=== PATIENT | female | born 1990 | race African-American/Black ===

== ENCOUNTER 2018-08-01 09:02 | Emergency (ER) | payer OTHER ==
[2018-08-01 09:06] VITALS: BP 135/81; PULSE 99; BMI 21.1
[2018-08-01] MEDS ORDERED: FLUORESCEIN NA 1 EA STRIP OD ONE (09:35)
[2018-08-01] MEDS ORDERED: FLUORESCEIN NA 1 EA STRIP ONE (09:37)
--- NOTE | 2018-08-01 09:48 | PDOC ---
History of Present Illness - General Chief Complaint: Injury Stated Complaint: INJURY Time Seen by Provider: 08/01/18 09:31 History Source: Patient Exam Limitations: Clinical Condition - History of Present Illness Initial Comments: 08/01/18 09:42 Patient with no significant past medical history presented for evaluation status post accidentally hitting her face to the corner of the right eye to a cabinet door 30 minutes ago. Patient denies change in vision, blurry vision. Patient denied contact or corrective lens use. Patient reported mild pain to right zygoma bone otherwise has no other symptoms Timing/Duration: 1-3 hours Past History - Past Medical History Allergies/Adverse Reactions: Allergies Allergy/AdvReac Type Severity Reaction Status Date / Time No Known Allergies Allergy Verified 08/01/18 09:19 Home Medications: Ambulatory Orders NK [No Known Home Medication] 08/01/18 COPD: No - Immunization History Immunization Up to Date: Yes - Suicide/Smoking/Psychosocial Hx Smoking History: Never smoked Hx Alcohol Use: No Drug/Substance Use Hx: No Review of Systems - Review of Systems Able to Perform ROS?: Yes Is the patient limited Hungarian proficient: No Constitutional: No: Chills, Fever, Malaise HEENTM: Yes: Symptoms Reported, See HPI, Eye Pain (right). No: Blurred Vision, Tearing, Recent change in vision, Double Vision, Cataracts, Ear Pain, Ocular Prothesis, Ear Discharge, Nose Pain, Nose Congestion, Tinnitus, Nose Bleeding, Hearing Loss, Throat Pain, Throat Swelling, Mouth Pain, Dental Problems, Difficulty Swallowing, Mouth Swelling, Other Respiratory: No: Symptoms reported, See HPI, Cough, Orthopnea, Shortness of Breath, SOB with Exertion, SOB at Rest, Stridor, Wheezing, Productive cough, Hemoptysis, Other Cardiac (ROS): No: Symptoms Reported, See HPI, Chest Pain, Edema, Irregular Heart Rate, Lightheadedness, Palpitations, Syncope, Chest Tightness, Other ABD/GI: No: Nausea, Vomiting All Other Systems: Reviewed and Negative *Physical Exam - Vital Signs Last Vital Signs Temp Pulse Resp BP Pulse Ox 99 H 17 135/81 99 08/01/18 09:04 08/01/18 09:04 08/01/18 09:04 08/01/18 09:04 - Physical Exam Comments: 08/01/18 09:47 GENERAL: Well developed, well nourished. Awake and alert. No acute distress. HEENT: No corneal abrasion or laceration on exam with fluorescein stain to right eye. Normocephalic, atraumatic. PERRLA, EOMI. No conjunctival pallor. Sclera are non-icteric. Moist mucous membranes. Oropharynx is clear. NECK: Supple. Full ROM. CARDIOVASCULAR: Regular rate and rhythm. No murmurs, rubs, or gallops. Distal pulses are 2+ and symmetric. PULMONARY: No evidence of respiratory distress. Lungs clear to auscultation bilaterally. No wheezing, rales or rhonchi. ABDOMINAL: Soft. Non-tender. Non-distended. No rebound or guarding. No organomegaly. Normoactive bowel sounds. MUSCULOSKELETAL Normal range of motion at all joints. SKIN: Warm and dry. No bruising or ecchymosis to right eye. NEUROLOGICAL: Alert, awake, appropriate. Gait is normal without ataxia. PSYCHIATRIC: Cooperative. Good eye contact. Appropriate mood General Appearance: Yes: Nourished, Appropriately Dressed. No: Apparent Distress Moderate Sedation - Procedure Monitoring Vital Signs: Procedure Monitoring Vital Signs Temperature Pulse Rate 99 H 08/01/18 09:04 Respiratory Rate 17 08/01/18 09:04 Blood Pressure 135/81 08/01/18 09:04 O2 Sat by Pulse Oximetry (%) 99 08/01/18 09:04 ED Treatment Course - RADIOLOGY Radiology Studies Ordered: Category Date Time Status FACIAL BONES [RAD] Stat Radiology 08/01/18 09:41 Ordered - Medications Given in the ED: ED Medications Discontinued Medications Generic Name Dose Route Start Last Admin Trade Name Evans PRN Reason Stop Dose Admin Fluorescein Sodium 1 ea 08/01/18 09:35 08/01/18 09:40 Fluorets - OD 08/01/18 09:36 1 ea ONCE ONE Administration Medical Decision Making - Medical Decision Making 08/01/18 09:48 Patient with no significant past medical history present for evaluation status post accidentally hitting face on a cabinet door of an hour ago. Clinical exam unremarkable with no corneal scarring or abrasion on exam with fluorescein stain. Intraocular muscle intact and pupils equal and refracted to light bilateral. Normal Snellen test exam with 20/20 vision in each eye and both eyes together. Patient declined x-ray at that she does not think anything is broken. No evidence of facial bone fracture on exam. Symptoms likely facial contusion. Patient is stable for discharge *DC/Admit/Observation/Transfer Diagnosis at time of Disposition: Facial contusion Qualifiers: Encounter type: initial encounter Qualified Code(s): S00.83XA - Contusion of other part of head, initial encounter Contusion, eye, right Qualifiers: Encounter type: initial encounter Qualified Code(s): S05.11XA - Contusion of eyeball and orbital tissues, right eye, initial encounter - Discharge Dispostion Disposition: HOME Condition at time of disposition: Stable Decision to Admit order: No - Referrals - Patient Instructions Printed Discharge Instructions: Eye Contusion Additional Instructions: Take Tylenol as needed for pain., To emergency room if worsening pain, blurry vision, dizziness or change in vision. - Post Discharge Activity
== END 2018-08-01 10:00 | disposition home or self-care (01) ==
LOC: JERFT 09:02
PROC: 4A07X0Z Measurement of Visual Acuity, External Approach (ICD-10-PCS; principal; 2018-08-01)
DX: S00.83XA Contusion of other part of head, initial encounter (principal); S05.11XA Contusion of eyeball and orbital tissues, right eye, initial encounter; W22.8XXA Striking against or struck by other objects, initial encounter; Y93.89 Activity, other specified; Y92.238 Other place in hospital as the place of occurrence of the external cause; Y99.0 Civilian activity done for income or pay
CPT/HCPCS: 99281-25